=== PATIENT | male | born 1975 | race Hispanic/Latino ===

== ENCOUNTER 2023-01-11 04:52 | Emergency (ER) | payer OTHER ==
[~2023-01-11] VITALS: Ht 170.2 cm; Wt 44.5 kg
[2023-01-11] MEDS ORDERED: ONDANSETRON 4MG INJ IVP ONE (06:00)
[2023-01-11] MEDS ORDERED: MORPHINE 4 MG SYG IVP ONE (06:00)
[2023-01-11] MEDS ORDERED: KETOROLAC 30MG VIAL (30MG/ML) IVP SCH (08:00)
[2023-01-11] MEDS ORDERED: IBUP-1493 PO (11:11)
[2023-01-11] MEDS ORDERED: CYCL-309 PO (11:11)
[2023-01-11 11:29] VITALS: BP 139/89
== END 2023-01-11 11:32 | disposition home or self-care (01) ==
LOC: EDH 04:52
DX: S46.212A Strain of muscle, fascia and tendon of other parts of biceps, left arm, initial encounter (principal); X50.1XXA Overexertion from prolonged static or awkward postures, initial encounter; Y93.89 Activity, other specified; Y92.89 Other specified places as the place of occurrence of the external cause; Y99.8 Other external cause status
CPT/HCPCS: 99285; 73218; 96374; 96375; 73070; 73060; J2405; J2270; J1885